=== PATIENT | female | born 1930 | race Caucasian/White ===

== ENCOUNTER 2019-09-27 17:33 | Inpatient (IN) | payer MEDICARE, BC ==
[~2019-09-27] VITALS: Ht 167.6 cm; Wt 67.5 kg
[~2019-09-27 17:33] MED LIST: AMLO5TAB10 PO; ASPI-482 PO; ATOR20TA PO; CARV6.2511 PO; LISI10TA2 PO; MECL25TA3 PO; METF1000 PO; METF500T PO; TRIM100T13 PO
[2019-09-27] MEDS: IV NORMAL SALINE 1000ML BAG 1,000 ML IV SCH (20:00)
[2019-09-27 20:15] VITALS: BP 144/62
[2019-09-27 20:28] LABS: BASO % 1 % (0-3); EOS # 0.2 x10^3/uL (0.0-0.7); EOS % 3 % (0-3); HEMOGLOBIN 9.3 g/dL (12.0-15.5); LYMPH % 12 % (24-48); MEAN CORPUSCULAR HEMOGLOBIN 32 pg (25-35); MEAN CORPUSCULAR HGB CONC 35 g/dL (31-37); MEAN CORPUSCULAR VOLUME 93 fL (79-100); MONO # 0.1 x10^3/uL (0.0-1.1); MONO % 2 % (0-9); NEUT # 7.2 x10^3/uL (1.8-7.7); NEUT % 84 % (31-73); RED CELL DISTRIBUTION WIDTH 15.1 % (11.5-14.5); WHITE BLOOD COUNT 8.6 x10^3/uL (4.0-11.0)
[2019-09-27 20:36] LABS: CALCIUM 8.8 mg/dL (8.5-10.1); GFR 52.4; POTASSIUM 4.1 mmol/L (3.5-5.1)
[2019-09-27 20:37] LABS: PROTHROMBIN TIME PATIENT 14.3 SEC (11.7-14.0)
[2019-09-27 20:43] LABS: ALBUMIN 3.4 g/dL (3.4-5.0); ALBUMIN/GLOBULIN RATIO 0.7 (1.0-1.7); TOTAL BILIRUBIN 1.1 mg/dL (0.2-1.0); TOTAL PROTEIN 8.1 g/dL (6.4-8.2)
[2019-09-27 20:44] LABS: D-DIMER 2.37 ug/mlFEU (0.00-0.50)
[2019-09-27 20:46] LABS: PLATELET COUNT 3 x10^3/uL (140-400)
[2019-09-27 20:49] LABS: PLT ESTIMATE DECREASED (ADEQUATE); POLYCHROMASIA SLIGHT
[2019-09-27 21:00] VITALS: BP 136/60
[2019-09-27] MEDS ORDERED: MECLIZINE HCL 12.5 MG TABLET. PO PRN (21:15)
[2019-09-27] MEDS ORDERED: NAPROXEN 500 MG TABLET PO PRN (21:15)
[2019-09-27 22:00] VITALS: BP 149/50
[2019-09-27] MEDS: CARVEDILOL 6.25 MG TABLET. PO SCH (22:02)
[2019-09-27] MEDS: ATORVASTATIN CALCIUM 20 MG TABLET PO SCH (22:02)
[2019-09-27 23:00] VITALS: BP 136/57
[2019-09-28] VITALS (19 sets, daily range): BP systolic 122–172; BP diastolic 44–81
[2019-09-28] MEDS: CARVEDILOL 6.25 MG TABLET. PO SCH ×2 (08:47→16:57)
[2019-09-28] MEDS: metFORMIN 500 MG TABLET PO SCH ×2 (08:48→16:57)
[2019-09-28 09:23] LABS: BASO % 0 % (0-3); EOS % 0 % (0-3); HEMATOCRIT 26.1 % (36.0-47.0); HEMOGLOBIN 8.9 g/dL (12.0-15.5); LYMPH % 18 % (24-48); MEAN CORPUSCULAR HEMOGLOBIN 32 pg (25-35); MEAN CORPUSCULAR HGB CONC 34 g/dL (31-37); MEAN CORPUSCULAR VOLUME 93 fL (79-100); MONO # 0.1 x10^3/uL (0.0-1.1); MONO % 3 % (0-9); NEUT # 4.5 x10^3/uL (1.8-7.7); NEUT % 79 % (31-73); RED CELL DISTRIBUTION WIDTH 15.1 % (11.5-14.5); WHITE BLOOD COUNT 5.7 x10^3/uL (4.0-11.0)
[2019-09-28 09:27] LABS: PLATELET COUNT 4 x10^3/uL (140-400)
[2019-09-28 09:33] LABS: ALBUMIN 3.3 g/dL (3.4-5.0); ALBUMIN/GLOBULIN RATIO 0.7 (1.0-1.7); CALCIUM 8.9 mg/dL (8.5-10.1); CREATININE 1.1 mg/dL (0.6-1.0); POTASSIUM 4.3 mmol/L (3.5-5.1); TOTAL BILIRUBIN 0.9 mg/dL (0.2-1.0); TOTAL PROTEIN 8.1 g/dL (6.4-8.2)
--- NOTE | 2019-09-28 10:16 | PN ---
DATE: 09/28/2019 SUBJECTIVE: The patient is resting, slightly propped up in bed, in no apparent respiratory distress. She continued to spit some blood and has also black stool. She was transferred yesterday after she was seen in the Emergency Room of [facility] with a platelet count of 23,000. I did discontinue her trimethoprim that she is getting for prophylaxis against urinary tract infection. She did receive 125 mg of Solu-Medrol. We did consult the software product specialist/oncologist to evaluate and treat. PHYSICAL EXAMINATION: GENERAL: When I saw her this morning, she looked well and was clearly in no apparent respiratory distress, pale, but no jaundice, cyanosis or thyromegaly. No jugular venous distention. No limb edema. VITAL SIGNS: Her heart rate was 88, blood pressure 165/76, temperature was 98, respiratory rate was 18 and oxygen saturation was 97% on 3 liters of oxygen. HEAD, EYES, EARS, NOSE AND THROAT: Showed normocephalic, atraumatic. NECK: Supple. HEART: Showed normal first and second heart sounds. No gallop or murmur. CHEST: Clear to auscultation. No crepitation or rhonchi. ABDOMEN: Distended, soft, nontender. NEUROLOGIC: She is awake, alert, responding appropriately. All cranial nerves intact. She moves extremities without difficulty. She ambulates without assistance or assistive devices. LABORATORY DATA: Her lab work this morning showed a white cell count 5700, hemoglobin was 8.9, hematocrit 26, MCV 93, and platelet count 4000 with a manual differential showed 79% polymorphs, 18% lymphocytes. Her reticulocyte count is only 2%. Her prothrombin time was 14.3, INR 1.1, aPTT was 32. Fibrinogen was 439. D-dimer was 2.37. Her chemistry this morning showed a serum sodium 142, potassium 4.3, chloride 107, bicarbonate 27, anion gap of 8, BUN 29, creatinine 1.1, estimated GFR was 47 mL per minute. Her glucose was 76, calcium was 8.9. Total bilirubin, AST, ALT, alkaline phosphatase were normal. Total protein was 8.1, albumin was 3.3. ASSESSMENT: This is an 88-year-old female patient who is coming with new onset of severe thrombocytopenia. Her platelet count today is only 4000. She apparently has been on trimethoprim on a daily basis as a prophylaxis for urinary tract infection that I have discontinued. She was given Solu-Medrol 125 mg IV yesterday and she was seen today by the software product specialist, started her on prednisone 60 mg daily. We will follow her obviously closely and transfuse her if she started bleeding. I will discontinue her naproxen. GUS YU MD DR: SOTO/aicha JOB#: [id number] / [id number]
--- NOTE | 2019-09-28 10:20 | CONS ---
DATE OF CONSULTATION: 09/28/2019 HEMATOLOGY/ONCOLOGY CONSULTATION REPORT REQUESTING PHYSICIAN: Alexus Cloud MD REASON FOR CONSULTATION: Severe thrombocytopenia. HISTORY OF PRESENT ILLNESS: The patient is an 88-year-old female who noted significant bruising in her forearms and her legs on 09/25/2019. She also noticed nosebleeds on and off which prompted her to go [place] [facility] [place] Her labs on 09/27/2019 revealed WBC of 8.6, hemoglobin 9.3 and a platelet count of 3000. Differential counts revealed 84% neutrophils and 12% lymphocytes. Creatinine was 1.0. Review of old records indicates that in 06/2018, her platelet count was 320,000 with hemoglobin of 10.8. In 04/2019, the platelet counts were 46,000-52,000 with hemoglobin of 11.2. She was referred to Dr. Christine Stephens in 04/2019 for thrombocytopenia. Followup platelet counts on 05/31/2019 revealed that it had normalized at 186,000 and no other interventions were recommended. She underwent workup with TSH and that was normal. 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 Copper level was normal. HIV negative. Hepatitis panel negative. Fibrinogen and coags negative. B12 326 with folic acid normal. Increased methylmalonic acid and she was taking B Complex. She denies hematemesis, melena or hematochezia. No hemoptysis or hematuria. PAST MEDICAL HISTORY: Osteoarthritis, COPD, dermatitis herpetiformis, diabetes mellitus, duodenal ulcer, GERD, diverticulitis, hyperlipidemia, hypertension, osteoporosis, pulmonary fibrosis, recurrent UTI, skin cancer and spinal stenosis. FAMILY HISTORY: Son had a stroke. Daughter has MS. SOCIAL HISTORY: She is single. She is a former smoker, quit at the age of 69 and she has [id number] smoking history. REVIEW OF SYSTEMS: A 12-point review of system was performed. Pertinent positives are mentioned in the history of present illness. Rest of the system review is negative. PHYSICAL EXAMINATION: GENERAL APPEARANCE: The patient is an 88-year-old female who is in no acute cardiorespiratory distress. VITAL SIGNS: Blood pressure 140/51 and temperature 98 degrees. HEENT: Atraumatic and normocephalic. EYES: No icterus. NECK: Supple. CHEST: Bilaterally symmetrical. No crepitations or rhonchi heard. HEART: S1, S2 normal. ABDOMEN: Soft and nontender. CENTRAL NERVOUS SYSTEM: No focal deficits. LYMPHATICS: No lymphadenopathy. SKIN: No rashes. PSYCHOLOGIC: Mood and affect are appropriate. LABORATORY DATA: WBC 8.6, hemoglobin 9.3 and platelet count 3000. Followup platelet count on 09/28/2019 is 4000. IMPRESSION AND PLAN: 1. Severe thrombocytopenia, clinically suggestive of Immune thrombocytopenic purpura. She did have an episode of thrombocytopenia in 04/2019, which resolved on its own. WBC count is normal with differential count that is unremarkable except for mildly increased neutrophils. No clinical evidence of leukemia. Peripheral smear reveals polychromasia and decreased platelet estimate. She received a dose of Solu-Medrol on 09/27/2019. I will start her on prednisone 60 mg daily from 09/28/2019 and monitor for response. There is no clinical evidence of lymphadenopathy or hepatosplenomegaly. There is no evidence of lymphoma clinically. I did recommend a bone marrow aspiration and biopsy and she would like to think about it. 2. Anemia, normochromic normocytic. I suspect that she has anemia due to chronic disease. Her prior workup was unremarkable. DAVID JENSEN MD DR: CHERELLE/aicha JOB#: [id number] / [id number] KIMBERLY
--- NOTE | 2019-09-28 10:38 | HP ---
ADMIT DATE: 09/28/2019 HISTORY OF PRESENT ILLNESS: The patient is an 88-year-old female patient, who presented to the Emergency Room of [facility] with gingival bleeding, hemoptysis, purpura of upper extremities and petechiae of lower extremities. She also had epistaxis. She also reported black stools. Symptoms started about 1 week ago. She discontinued her daily aspirin at that time and she is not on any additional anticoagulation therapy. No history of illness. Previous history of thrombocytopenia on newly-initiated medication. No history of cancer. Denied any dizziness, lightheadedness, chest pain, shortness of breath. She was evaluated in the Emergency Room and lab work showed that her platelet count of only 33,000. 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 She was given 125 mg of Solu-Medrol and was transferred to [facility] for further evaluation and to consult the plastic parts fabricator/oncologist. PAST MEDICAL HISTORY: Significant for type 2 diabetes, hypertension, hyperlipidemia. She also has probably bronchiectasis, senile macular degeneration, transient ischemic attack x 3, and generalized osteoarthritis. PAST SURGICAL HISTORY: Significant for bunionectomy, cancer skin resection from her scalp, bilateral cataract extraction as well as colonoscopy. She apparently has been following with Dr. Stephens, who recommended bone marrow biopsy; however, I do not have all the specifics. ALLERGIES: SHE IS ALLERGIC TO MACROLIDE ANTIBIOTICS, CIPROFLOXACIN, PLAVIX, FLUORESCEIN, HYDROCODONE, AND PENICILLIN. FAMILY HISTORY: She has 1 sister older and still alive. She had 2 sisters in their 90s because of congestive heart failure. Her mother at the age of 93 because of congestive heart failure. Her father and 2 brothers in their 70s because of cancer. SOCIAL HISTORY: She is , has 1 son and daughter. She smoked for almost 50 years, quit when she was 69 years old. She does not drink alcohol. She worked for the [employer]. MEDICATIONS: She is currently on following medications: She is on doxycycline hyclate 100 mg twice a day, trimethoprim 100 mg at bedtime, atorvastatin calcium 20 mg at bedtime, omega-3 fatty acid 1000 mg once a day, carvedilol 6.25 mg twice a day, aspirin 81 mg once a day, alprazolam 0.25 mg twice a day as needed, meclizine 25 mg 3 times a day as needed, and metformin 500 mg once a day. She is also on betamethasone dipropionate cream apply topically twice a day, vitamin B complex 1 tablet once a day, and multivitamin with mineral. She is also on PreserVision AREDS 1 tablet daily and lactobacillus acidophilus 100 mg p.o. daily for colon health. PHYSICAL EXAMINATION: GENERAL: On examining her in the Emergency Room, the patient was pale, but no jaundice, cyanosis, or thyromegaly. No jugular venous distention. No lower limb edema. VITAL SIGNS: Her heart rate was 82, blood pressure was 146/63, temperature was 98.2, respiratory rate was 18 and oxygen saturation was 93% on 3 liters of oxygen. HEAD, EYES, EARS, NOSE AND THROAT: Showed normocephalic, atraumatic. NECK: Supple. HEART: Showed normal first and second heart sound. No gallop, rub, or murmur. CHEST: Clear to auscultation. No crepitation or rhonchi. ABDOMEN: Distended, soft, nontender. NEUROLOGIC: She was awake, alert, responding appropriately. All cranial nerves intact. She moves her extremities without difficulty. SKIN: Ecchymosis and bleeding on her tongue and her petechiae on her palate. She has also multiple ecchymoses in both upper extremities and extensive petechiae in both lower extremities. LABORATORY DATA: Her lab work showed her white cell count was 9400, hemoglobin 9.4, hematocrit 28.5, MCV 95, and platelet count of 3000 with normal manual differential. Her chemistry showed a serum sodium 141, potassium 4, chloride 105, bicarbonate 26, anion gap of 10, BUN 24, creatinine 1, estimated GFR was 52 mL per minute. Her glucose 118. Calcium was 8.9. Total bilirubin, AST, ALT, alkaline phosphatase were normal. Total protein was 8.1 and albumin was 3.5. Her prothrombin time, INR, and aPTT were within normal limits. The patient was given a dose of Solu-Medrol 125 mg once IV and was transferred to [facility] with diagnosis of severe thrombocytopenia for further evaluation and to consult the plastic parts fabricator/oncologist. GUS YU MD DR: SOTO/aicha JOB#: [id number] / [id number]
[2019-09-28] MEDS: predniSONE 20 MG TABLET PO SCH (10:46)
[2019-09-28] MEDS: IV NORMAL SALINE 1000ML BAG 1,000 ML IV SCH (16:00)
[2019-09-28] MEDS: ATORVASTATIN CALCIUM 20 MG TABLET PO SCH (20:15)
[2019-09-29] VITALS (7 sets, daily range): BP systolic 112–162; BP diastolic 50–86
[2019-09-29 06:32] LABS: CALCIUM 8.6 mg/dL (8.5-10.1); CREATININE 0.9 mg/dL (0.6-1.0); GFR 59.2
[2019-09-29 07:39] LABS: HEMOGLOBIN 7.4 g/dL (12.0-15.5); RED BLOOD COUNT 2.34 x10^6/uL (3.50-5.40); RED CELL DISTRIBUTION WIDTH 15.1 % (11.5-14.5); WHITE BLOOD COUNT 11.1 x10^3/uL (4.0-11.0)
[2019-09-29] MEDS: metFORMIN 500 MG TABLET PO SCH ×2 (08:00→17:00)
[2019-09-29] MEDS: CARVEDILOL 6.25 MG TABLET. PO SCH ×2 (08:20→17:00)
[2019-09-29] MEDS: predniSONE 20 MG TABLET PO SCH (08:20)
--- NOTE | 2019-09-29 13:04 | PN ---
DATE: 09/29/2019 SUBJECTIVE: The patient is resting, slightly propped up in bed, in no apparent respiratory distress. She is awake, alert. On questioning her, she denied any complaints except recurrent bouts of dry cough. Denied any chest pain or shortness of breath. She was started yesterday on prednisone 60 mg once a day by the oncologist. PHYSICAL EXAMINATION: GENERAL: When I examined her, she was pale. No jaundice, cyanosis or thyromegaly. No jugular venous distention. No limb edema. VITAL SIGNS: Her heart rate was 85, blood pressure was 112/67, temperature was 97.9, respiratory rate was 18 and oxygen saturation was 95% on 2 liters of oxygen. HEAD, EYES, EARS, NOSE AND THROAT: Showed normocephalic, atraumatic. NECK: Supple. HEART: Showed normal first and second heart sounds. No gallop or murmur. CHEST: Clear to auscultation. No crepitation or rhonchi. ABDOMEN: Distended, soft, nontender. NEUROLOGIC: She is awake, alert, responding appropriately. All cranial nerves intact. She moves extremities without difficulty. She ambulates with a walker. LABORATORY DATA: Her lab work this morning showed a white cell count of 11,100, hemoglobin 7.4, hematocrit 22, MCV 94 and platelet count of 3000. Serum sodium 144, potassium 4, chloride 111, bicarbonate 25, anion gap of 8, BUN 36, creatinine 0.9, estimated GFR was 59 mL per minute, her glucose 101, calcium was 8.6. 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 Apparently, the patient was scheduled for bone marrow biopsy tomorrow. GUS YU MD DR: SOTO/aicha JOB#: [id number] / [id number]
--- NOTE | 2019-09-29 15:21 | PDOC ---
PROGRESS NOTES Subjective Subjective HPI - f/u of Severe thrombocytopenia ROS - no bleed Objective Objective Vital Signs Date Time Temp Pulse Resp B/P (MAP) Pulse Ox O2 Delivery O2 Flow Rate FiO2 09/29/19 12:00 98.3 77 18 147/50 (82) 96 Nasal Cannula 2.0 98.3 Intake and Output 09/29/19 07:00 Intake Total 920 ml Balance 920 ml Intake Oral 920 ml # Voids 6 # Bowel Movements 2 Physical Exam Heart: Normal S1, Normal S2 General: Alert, Oriented X3 Lungs: Clear to auscultation Neuro: Normal speech Psych/Mental Status: Mental status NL Skin: Other (ecchymoses and petechiae) Assessment Assessment IMPRESSION AND PLAN: 1. Severe thrombocytopenia, clinically suggestive of Immune thrombocytopenic purpura. She did have an episode of thrombocytopenia in 04/2019, which resolved on its own. WBC count is normal with differential count that is unremarkable except for mildly increased neutrophils. No clinical evidence of leukemia. Peripheral smear reveals polychromasia and decreased platelet estimate. She received a dose of Solu-Medrol on 09/27/2019. I started her on prednisone 60 mg daily from 09/28/2019 and monitor for response. There is no clinical evidence of lymphadenopathy or hepatosplenomegaly. There is no evidence of lymphoma clinically. I did recommend a bone marrow aspiration and biopsy and she agrees. 2. Anemia, normochromic normocytic. I suspect that she has anemia due to chronic disease. Her prior workup was unremarkable. Comment Review of Relevant I have reviewed the following items jose c (where applicable) has been applied. Labs Laboratory Tests Test 09/27/19 20:10 09/28/19 09:00 09/28/19 16:57 09/29/19 06:05 White Blood Count 8.6 x10^3/uL (4.0-11.0) 5.7 x10^3/uL (4.0-11.0) 11.1 x10^3/uL (4.0-11.0) Red Blood Count 2.90 x10^6/uL (3.50-5.40) 2.81 x10^6/uL (3.50-5.70) 2.34 x10^6/uL (3.50-5.40) Hemoglobin 9.3 g/dL (12.0-15.5) 8.9 g/dL (12.0-15.5) 7.4 g/dL (12.0-15.5) Hematocrit 27.0 % (36.0-47.0) 26.1 % (36.0-47.0) 22.0 % (36.0-47.0) Mean Corpuscular Volume 93 fL (79-100) 93 fL (79-100) 94 fL (79-100) Mean Corpuscular Hemoglobin 32 pg (25-35) 32 pg (25-35) 32 pg (25-35) Mean Corpuscular Hemoglobin Concent 35 g/dL (31-37) 34 g/dL (31-37) 34 g/dL (31-37) Red Cell Distribution Width 15.1 % (11.5-14.5) 15.1 % (11.5-14.5) 15.1 % (11.5-14.5) Platelet Count 3 x10^3/uL (140-400) 4 x10^3/uL (140-400) 3 x10^3/uL (140-400) Neutrophils (%) (Auto) 84 % (31-73) 79 % (31-73) Lymphocytes (%) (Auto) 12 % (24-48) 18 % (24-48) Monocytes (%) (Auto) 2 % (0-9) 3 % (0-9) Eosinophils (%) (Auto) 3 % (0-3) 0 % (0-3) Basophils (%) (Auto) 1 % (0-3) 0 % (0-3) Neutrophils # (Auto) 7.2 x10^3/uL (1.8-7.7) 4.5 x10^3/uL (1.8-7.7) Lymphocytes # (Auto) 1.0 x10^3/uL (1.0-4.8) 1.0 x10^3/uL (1.0-4.8) Monocytes # (Auto) 0.1 x10^3/uL (0.0-1.1) 0.1 x10^3/uL (0.0-1.1) Eosinophils # (Auto) 0.2 x10^3/uL (0.0-0.7) 0.0 x10^3/uL (0.0-0.7) Basophils # (Auto) 0.0 x10^3/uL (0.0-0.2) 0.0 x10^3/uL (0.0-0.2) Platelet Estimate Decreased (ADEQUATE) Polychromasia Slight Prothrombin Time 14.3 SEC (11.7-14.0) Prothromb Time International Ratio 1.1 (0.8-1.1) Activated Partial Thromboplast Time 32 SEC (24-38) Fibrinogen 439 mg/dL (200-440) D-Dimer (Lyly) 2.37 ug/mlFEU (0.00-0.50) Sodium Level 141 mmol/L (136-145) 142 mmol/L (136-145) 144 mmol/L (136-145) Potassium Level 4.1 mmol/L (3.5-5.1) 4.3 mmol/L (3.5-5.1) 4.0 mmol/L (3.5-5.1) Chloride Level 106 mmol/L (98-107) 107 mmol/L (98-107) 111 mmol/L (98-107) Carbon Dioxide Level 25 mmol/L (21-32) 27 mmol/L (21-32) 25 mmol/L (21-32) Anion Gap 10 (6-14) 8 (6-14) 8 (6-14) Blood Urea Nitrogen 26 mg/dL (7-20) 29 mg/dL (7-20) 36 mg/dL (7-20) Creatinine 1.0 mg/dL (0.6-1.0) 1.1 mg/dL (0.6-1.0) 0.9 mg/dL (0.6-1.0) Estimated GFR (Cockcroft-Gault) 52.4 47.0 59.2 BUN/Creatinine Ratio 26 (6-20) 26 (6-20) Glucose Level 173 mg/dL (70-99) 176 mg/dL (70-99) 101 mg/dL (70-99) Calcium Level 8.8 mg/dL (8.5-10.1) 8.9 mg/dL (8.5-10.1) 8.6 mg/dL (8.5-10.1) Total Bilirubin 1.1 mg/dL (0.2-1.0) 0.9 mg/dL (0.2-1.0) Aspartate Amino Transf (AST/SGOT) 17 U/L (15-37) 15 U/L (15-37) Alanine Aminotransferase (ALT/SGPT) 16 U/L (14-59) 11 U/L (14-59) Alkaline Phosphatase 57 U/L (46-116) 55 U/L (46-116) Lactate Dehydrogenase 227 U/L (81-234) Total Protein 8.1 g/dL (6.4-8.2) 8.1 g/dL (6.4-8.2) Albumin 3.4 g/dL (3.4-5.0) 3.3 g/dL (3.4-5.0) Albumin/Globulin Ratio 0.7 (1.0-1.7) 0.7 (1.0-1.7) Absolute Reticulocyte Count 0.055 x10^6/uL (0.020-0.120) Percent Reticulocyte Count 2.0 % (0.5-2.3) Immature Reticulocyte Fraction 0.56 (0.20-0.60) Iron Level 79 ug/dL (50-170) Total Iron Binding Capacity 228 ug/dL (250-450) Iron Saturation 35 % (15-34) Ferritin 158 ng/mL (8-252) Glucose (Fingerstick) 133 mg/dL (70-99) Test 09/29/19 07:41 09/29/19 10:53 Glucose (Fingerstick) 84 mg/dL (70-99) 124 mg/dL (70-99) Laboratory Tests Test 09/28/19 16:57 09/29/19 06:05 09/29/19 07:41 09/29/19 10:53 Glucose (Fingerstick) 133 mg/dL (70-99) 84 mg/dL (70-99) 124 mg/dL (70-99) White Blood Count 11.1 x10^3/uL (4.0-11.0) Red Blood Count 2.34 x10^6/uL (3.50-5.40) Hemoglobin 7.4 g/dL (12.0-15.5) Hematocrit 22.0 % (36.0-47.0) Mean Corpuscular Volume 94 fL (79-100) Mean Corpuscular Hemoglobin 32 pg (25-35) Mean Corpuscular Hemoglobin Concent 34 g/dL (31-37) Red Cell Distribution Width 15.1 % (11.5-14.5) Platelet Count 3 x10^3/uL (140-400) Sodium Level 144 mmol/L (136-145) Potassium Level 4.0 mmol/L (3.5-5.1) Chloride Level 111 mmol/L (98-107) Carbon Dioxide Level 25 mmol/L (21-32) Anion Gap 8 (6-14) Blood Urea Nitrogen 36 mg/dL (7-20) Creatinine 0.9 mg/dL (0.6-1.0) Estimated GFR (Cockcroft-Gault) 59.2 Glucose Level 101 mg/dL (70-99) Calcium Level 8.6 mg/dL (8.5-10.1) Medications Current Medications Sodium Chloride 1,000 ml @ 50 mls/hr Q20H IV Last administered on 09/28/19at 16:00; Start 09/27/19 at 20:00; Stop 09/29/19 at 11:33; Status DC Carvedilol (Coreg) 6.25 mg BIDWMEALS PO Last administered on 09/29/19at 08:20; Start 09/27/19 at 21:30 Metformin HCl (Glucophage) 500 mg BIDWMEALS PO Last administered on 09/28/19at 16:57; Start 09/28/19 at 08:00 Atorvastatin Calcium (Lipitor) 20 mg QHS PO Last administered on 09/28/19at 20:15; Start 09/27/19 at 21:30 Naproxen (Naprosyn) 500 mg PRN Q6HRS PRN PO pain; Start 09/27/19 at 21:15; Stop 09/28/19 at 09:59; Status DC Meclizine HCl (Antivert) 25 mg PRN Q6HRS PRN PO DIZZINESS; Start 09/27/19 at 21:15 Alprazolam (Xanax) 0.25 mg PRN Q8HRS PRN PO ANXIETY / AGITATION; Start 09/27/19 at 22:30 Prednisone (Prednisone) 60 mg DAILY PO Last administered on 09/29/19at 08:20; Start 09/28/19 at 10:00 Active Scripts Active Reported Lipitor (Atorvastatin Calcium) 20 Mg Tablet 1 Tab PO DAILY Meclizine Hcl 25 Mg Tablet 1 Tab PO TID Glucophage (Metformin Hcl) 500 Mg Tablet 1 Tab PO BID Carvedilol (Carvedilol) 6.25 Mg Tablet 1 Tab PO BID Lisinopril 10 Mg Tablet 1 Tab PO DAILY Vitals/I & O Vital Sign - Last 24 Hours 09/28/19 09/28/19 09/28/19 09/28/19 16:30 16:34 16:57 19:06 Temp 98.2 98.4 98.2 98.4 Pulse 98 98 95 Resp 18 18 B/P (MAP) 172/65 (100) 172/65 151/81 (104) Pulse Ox 94 97 O2 Delivery Nasal Cannula Nasal Cannula Nasal Cannula O2 Flow Rate 3.0 3.0 3.0 09/28/19 09/29/19 09/29/19 09/29/19 23:29 03:24 08:00 08:20 Temp 97.6 97.7 97.9 97.6 97.7 97.9 Pulse 79 72 85 72 Resp 18 18 18 B/P (MAP) 147/79 (101) 146/64 (91) 112/67 (82) 146/64 Pulse Ox 97 98 95 O2 Delivery Nasal Cannula Nasal Cannula Nasal Cannula O2 Flow Rate 3.0 3.0 2.0 09/29/19 09/29/19 09:00 12:00 Temp 98.3 98.3 Pulse 77 Resp 18 B/P (MAP) 147/50 (82) Pulse Ox 96 O2 Delivery Nasal Cannula Nasal Cannula O2 Flow Rate 2.0 2.0 Intake and Output 09/28/19 09/28/19 09/29/19 15:00 23:00 07:00 Intake Total 500 ml 300 ml 120 ml Balance 500 ml 300 ml 120 ml DAVID JENSEN MD Sep 29, 2019 15:21
--- NOTE | 2019-09-29 15:50 | RAD ---
CHEST PA LATERAL INDICATION: Worsening dyspnea. COMPARISON STUDY: Radiograph 05/18/2019. CT 09/09/2016. FINDINGS: Lungs: Normal lung volume. Patchy bilateral opacities and prominent interstitial markings, similar to the prior exams. Pleura: No pleural effusion or pneumothorax. Heart and Mediastinum: The cardiomediastinal silhouette is normal. The great vessels of the thorax are normal. IMPRESSION: Patchy bilateral opacities and prominent interstitial markings are similar to prior exams. This may represent interstitial edema and/or chronic interstitial lung disease. Superimposed infection would be difficult to exclude. Electronically signed by: Reginald Chan MD (09/29/2019 3:47 PM) [facility]
[2019-09-29] MEDS: ALPRAZolam 0.25 MG TABLET PO PRN ×2 (17:00→19:13)
[2019-09-29] MEDS: ATORVASTATIN CALCIUM 20 MG TABLET PO SCH (20:07)
[2019-09-30] VITALS (19 sets, daily range): BP systolic 127–181; BP diastolic 39–88
[2019-09-30 04:16] LABS: RED BLOOD COUNT 2.14 x10^6/uL (3.50-5.40); RED CELL DISTRIBUTION WIDTH 15.1 % (11.5-14.5); WHITE BLOOD COUNT 10.3 x10^3/uL (4.0-11.0)
[2019-09-30 04:30] LABS: HEMATOCRIT 20.4 % (36.0-47.0); HEMOGLOBIN 6.9 g/dL (12.0-15.5)
[2019-09-30] MEDS: CARVEDILOL 6.25 MG TABLET. PO SCH ×2 (08:00→17:30)
--- NOTE | 2019-09-30 08:49 | PDOC ---
SUBJECTIVE Subjective S: skin, tongue, nose bleeding O: Gen: NAD, resting in bed Psych: pleasant mood and affect Skin: excess UE bruising, petechiae BLE, tongue w/ recent bleeding too Labs: plt 4,000, Hb 6.9 INR 1.1, PTT nl, ferr and Fe sat adequate A/P: Ms Arvizu is an 88 yo female w/ h/o dermatitis herpetiformis, and anemia and TCP, trimethroprim and naproxen stopped on admit w/ plt of 3,000 not improved w/ prednisone 60 mg daily TCP: BMBx today, trimethoprim and naproxen stopped, on prednisone 60 mg, will add IVIG today and await BMBx results anemia: suspect from bleeding from TCP, transfuse to keep Hb >7 hypoxia at home: on O2 prn eosinophilia in the past: 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 OBJECTIVE Vital Signs Vital Signs Date Time Temp Pulse Resp B/P (MAP) Pulse Ox O2 Delivery O2 Flow Rate FiO2 09/30/19 08:25 98.8 76 18 167/63 98.8 09/30/19 08:10 98.0 78 18 147/88 98.0 09/30/19 07:55 97.8 77 16 136/49 (78) 98 Nasal Cannula 2.0 97.8 09/30/19 03:35 97.5 70 18 139/47 (77) 99 Nasal Cannula 2.0 97.5 09/29/19 23:26 97.6 66 18 133/55 (81) 97 Nasal Cannula 2.0 97.6 09/29/19 21:00 Nasal Cannula 2.0 09/29/19 19:19 97.6 77 18 143/66 (91) 98 Nasal Cannula 2.0 97.6 09/29/19 17:00 88 162/63 09/29/19 16:00 96.2 88 16 162/63 (96) 96 Nasal Cannula 2.0 96.2 09/29/19 12:00 98.3 77 18 147/50 (82) 96 Nasal Cannula 2.0 98.3 09/29/19 09:00 Nasal Cannula 2.0 I & O Intake and Output 09/30/19 07:00 Intake Total 460 ml Balance 460 ml Intake Oral 460 ml # Voids 4 COMMENT Lab Laboratory Tests Test 09/29/19 10:53 09/29/19 16:37 09/29/19 21:00 09/30/19 03:05 Glucose (Fingerstick) 124 mg/dL (70-99) 169 mg/dL (70-99) 123 mg/dL (70-99) White Blood Count 10.3 x10^3/uL (4.0-11.0) Red Blood Count 2.14 x10^6/uL (3.50-5.40) Hemoglobin 6.9 g/dL (12.0-15.5) Hematocrit 20.4 % (36.0-47.0) Mean Corpuscular Volume 95 fL (79-100) Mean Corpuscular Hemoglobin 32 pg (25-35) Mean Corpuscular Hemoglobin Concent 34 g/dL (31-37) Red Cell Distribution Width 15.1 % (11.5-14.5) Platelet Count 4 x10^3/uL (140-400) Test 09/30/19 07:22 Glucose (Fingerstick) 82 mg/dL (70-99) WILLY AMAYA MD Sep 30, 2019 08:49
[2019-09-30 09:42] LABS: BASO % 0 % (0-3); EOS % 0 % (0-3); LYMPH # 2.4 x10^3/uL (1.0-4.8); LYMPH % 23 % (24-48); MEAN CORPUSCULAR HEMOGLOBIN 32 pg (25-35); MEAN CORPUSCULAR HGB CONC 34 g/dL (31-37); MONO # 0.7 x10^3/uL (0.0-1.1); MONO % 7 % (0-9); NEUT % 69 % (31-73)
[2019-09-30 09:43] LABS: RED BLOOD COUNT 2.14 x10^6/uL (3.50-5.40); WHITE BLOOD COUNT 10.3 x10^3/uL (4.0-11.0)
[2019-09-30 09:44] LABS: MEAN CORPUSCULAR VOLUME 95 fL (79-100); RED CELL DISTRIBUTION WIDTH 15.1 % (11.5-14.5)
[2019-09-30 09:45] LABS: HEMATOCRIT 20.4 % (36.0-47.0); HEMOGLOBIN 6.9 g/dL (12.0-15.5); PLATELET COUNT 4 x10^3/uL (140-400)
[2019-09-30 10:44] LABS: PLT ESTIMATE DECREASED (ADEQUATE)
[2019-09-30 10:46] LABS: ANISOCYTOSIS SLIGHT; POLYCHROMASIA OCCASIONAL
--- NOTE | 2019-09-30 10:46 | PN ---
DATE: 09/30/2019 SUBJECTIVE: The patient is resting, slightly propped up in bed, in no apparent distress. Denied any complaint. Unfortunately, she dropped her hemoglobin and hematocrit down to 6.9 and 20.4, for which she ordered 1 unit of packed RBCs. Her platelet count continued to be 4,000 and she was seen by the oncologist. The plan is for her to get platelet transfusion as well as IVIG and she is scheduled for bone marrow biopsy. OBJECTIVE: GENERAL: When I examined her today, she looked pale. No jaundice, cyanosis or thyromegaly. No jugular venous distension. No lower limb edema. VITAL SIGNS: Her heart rate was 78, blood pressure was 147/88, temperature was 98, respiratory rate was 18 and oxygen saturation was 98% on 2 liters of oxygen. HEAD, EYES, EARS, NOSE AND THROAT: Showed normocephalic, atraumatic. NECK: Supple. CARDIAC: Normal first and second heart sounds. No gallop, rub or murmur. CHEST: Clear to auscultation. No crepitation or rhonchi. ABDOMEN: Distended, soft and nontender. No guarding or rigidity. No organomegaly. All hernial orifice intact. Bowel sounds normal. NEUROLOGIC: She was awake and alert, responding appropriately. All cranial nerves intact. She moves extremities without difficulty. LABORATORY DATA: Her lab work [place] [address], hemoglobin 6.9, hematocrit 20.4, MCV 95 and platelet count 4,000. Her chemistry showed her serum sodium 144, potassium 4, chloride 111, bicarbonate 25, anion gap of 8, BUN 36 and creatinine 0.9. Estimated GFR was 59 mL per minute. Her glucose was 101, calcium was 8.6 and prothrombin time, INR, aPTT and D-dimer ____. 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 Other medical problems include type 2 diabetes, hypertension, hyperlipidemia, bronchiectasis, senile macular degeneration and transient ischemic attack x 3 and generalized osteoarthritis. She also dropped her hemoglobin and hematocrit down to 6.9 and 20. PLAN: To transfuse 1 unit of packed RBCs, transfuse platelets, started her on IVIG and proceed with the scheduled bone marrow biopsy. GUS YU MD DR: SOTO/aicha JOB#: [id number] / [id number]
--- NOTE | 2019-09-30 10:53 | NUR ---
SW following pt for dc planning. Chart reviewed and discussed with RN. Pt lives at home alone and oncology following. Per RN pt has been using a walker here but does not use one at home. Pt might benefit from PT/OT if appropriate. SW will be available as needed.
[2019-09-30] MEDS ORDERED: LIDOCAINE 2% VISCOUS 15 ML SOLUTION. SWSW PRN (11:15)
[2019-09-30] MEDS ORDERED: fentaNYL PF VIAL 100 MCG/2 ML VIAL ONE (12:04)
[2019-09-30] MEDS ORDERED: MIDAZOLAM HCL/PF 2 MG/2 ML VIAL. ONE (12:04)
[2019-09-30] MEDS ORDERED: MIDAZOLAM HCL/PF 2 MG/2 ML VIAL. IV ONE (12:15)
[2019-09-30] MEDS ORDERED: LIDOCAINE WITH 8.4% SOD BICARB 3 ML DISP.SYRIN. ONE (12:15)
[2019-09-30] MEDS ORDERED: LIDOCAINE WITH 8.4% SOD BICARB 3 ML DISP.SYRIN. IJ ONE (12:15)
[2019-09-30] MEDS ORDERED: fentaNYL PF VIAL 100 MCG/2 ML VIAL IV ONE (12:15)
--- NOTE | 2019-09-30 13:59 | RAD ---
CT-guided bone marrow biopsy. 09/30/2019 11:56 AM Indication: thrombocytopenia Discussion: The risks and benefits of the procedure, including but not limited to, bleeding and infection were discussed patient. Informed consent was obtained. The patient was brought to the CT scanner and placed in the prone position. A timeout procedure was performed. [employer] CT imaging of the pelvis demonstrated left ilium amenable to bone marrow biopsy. The overlying soft tissues were prepped and draped using maximum sterile barrier technique. 1% lidocaine without epinephrine was administered for local anesthesia. Under intermittent CT guidance, an OncControl needle was advanced into the bone marrow of the left iliac crest. 2 Aspirates and 1 core biopsy samples were obtained. Samples were delivered to pathology was present at the time of procedure. The needle was removed and manual pressure held to achieve hemostasis. No immediate complications were identified. The procedure was performed under conscious sedation including continuous cardiopulmonary monitoring via dedicated sedation nurse. Sedation time: 20 minutes Impression: Successful CT-guided bone marrow biopsy of the left iliac crest . PQRS Compliance Statement: One or more of the following individualized dose reduction techniques were utilized for this examination: 1. Automated exposure control 2. Adjustment of the mA and/or kV according to patient size 3. Use of iterative reconstruction technique
[2019-09-30] MEDS: predniSONE 20 MG TABLET PO SCH (14:46)
[2019-09-30] MEDS: metFORMIN 500 MG TABLET PO SCH ×3 (14:46→17:30)
[2019-09-30 17:21] LABS: BASO % 0 % (0-3); EOS # 0.1 x10^3/uL (0.0-0.7); EOS % 1 % (0-3); HEMATOCRIT 23.8 % (36.0-47.0); HEMOGLOBIN 8.1 g/dL (12.0-15.5); LYMPH # 1.9 x10^3/uL (1.0-4.8); LYMPH % 19 % (24-48); MEAN CORPUSCULAR HEMOGLOBIN 31 pg (25-35); MEAN CORPUSCULAR HGB CONC 34 g/dL (31-37); MEAN CORPUSCULAR VOLUME 91 fL (79-100); MONO # 0.6 x10^3/uL (0.0-1.1); MONO % 6 % (0-9); NEUT # 7.6 x10^3/uL (1.8-7.7); NEUT % 74 % (31-73); PLATELET COUNT 27 x10^3/uL (140-400); RED BLOOD COUNT 2.61 x10^6/uL (3.50-5.40); RED CELL DISTRIBUTION WIDTH 16.9 % (11.5-14.5); WHITE BLOOD COUNT 10.3 x10^3/uL (4.0-11.0)
[2019-09-30] MEDS: ATORVASTATIN CALCIUM 20 MG TABLET PO SCH (21:10)
[2019-10-01 03:10] VITALS: BP 155/47
[2019-10-01 05:11] LABS: HEMATOCRIT 23.7 % (36.0-47.0); HEMOGLOBIN 8.2 g/dL (12.0-15.5); RED BLOOD COUNT 2.62 x10^6/uL (3.50-5.40); RED CELL DISTRIBUTION WIDTH 17.4 % (11.5-14.5); WHITE BLOOD COUNT 8.3 x10^3/uL (4.0-11.0)
[2019-10-01 06:15] LABS: CALCIUM 8.6 mg/dL (8.5-10.1); GFR 52.4; POTASSIUM 3.8 mmol/L (3.5-5.1)
[2019-10-01 07:00] VITALS: BP 145/60
[2019-10-01] MEDS: metFORMIN 500 MG TABLET PO SCH ×2 (08:00→17:00)
[2019-10-01] MEDS: CARVEDILOL 6.25 MG TABLET. PO SCH ×2 (08:36→17:23)
--- NOTE | 2019-10-01 09:43 | PDOC ---
SUBJECTIVE Subjective S: bruises evolving, did have some dark stool O: Gen: NAD, resting in bed Psych: pleasant mood and affect Skin: UE bruising, petechiae BLE Labs: plt 4,000, Hb 6.9, improved w/ plts 27 and sustained post transfusion, Hb up to 8.2 post 1 unit INR 1.1, PTT nl, ferr and Fe sat adequate, B12 and LDH nl, retic nl, fibrinogen nl A/P: Ms Arvizu is an 88 yo female w/ h/o dermatitis herpetiformis, and anemia and TCP, trimethroprim and naproxen stopped on admit w/ plt of 3,000 not improved w/ prednisone 60 mg daily, w/ good response to plt transfusion TCP: BMBx pending, suspect drug induced, trimethoprim and naproxen stopped, will dc prednisone, IVIG not given due to shortage, great response and sustained to transfusion anemia: suspect from bleeding from TCP, transfuse to keep Hb >7, good response to 1 unit blood hypoxia at home: on O2 prn 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 OBJECTIVE Vital Signs Vital Signs Date Time Temp Pulse Resp B/P (MAP) Pulse Ox O2 Delivery O2 Flow Rate FiO2 10/01/19 08:36 71 145/60 10/01/19 07:00 98.0 71 17 145/60 (88) 96 Nasal Cannula 2.0 98.0 10/01/19 03:10 98.0 66 17 155/47 (83) 96 Nasal Cannula 2.0 98.0 09/30/19 23:10 97.6 69 18 140/53 (82) 96 Nasal Cannula 2.0 97.6 09/30/19 20:00 Nasal Cannula 2.0 09/30/19 19:10 98.0 82 18 151/54 (86) 93 Nasal Cannula 2.0 98.0 09/30/19 17:30 77 153/45 09/30/19 17:00 97.7 77 18 153/45 97.7 09/30/19 16:09 98.2 74 16 134/47 (76) 94 98.2 09/30/19 16:00 98.2 74 16 134/47 98.2 09/30/19 15:49 97.4 85 16 136/39 (71) 94 Nasal Cannula 2.0 97.4 09/30/19 15:40 98.0 75 18 135/51 98.0 09/30/19 15:25 97.9 68 20 127/49 97.9 09/30/19 13:15 Nasal Cannula 2.0 09/30/19 12:37 75 16 99 Nasal Cannula 2.0 09/30/19 12:36 15 99 Nasal Cannula 2.0 09/30/19 12:34 75 14 99 Nasal Cannula 2.0 09/30/19 12:29 76 22 100 Nasal Cannula 2.0 09/30/19 11:30 97.9 79 18 160/61 97.9 09/30/19 11:14 97.9 70 16 148/54 (85) 98 Nasal Cannula 2.0 97.9 09/30/19 10:25 97.9 70 16 148/54 97.9 I & O Intake and Output 10/01/19 07:00 Intake Total 1805 ml Balance 1805 ml Intake Oral 650 ml Blood Product IV Normal Saline Flush 1155 ml # Voids 5 COMMENT Lab Laboratory Tests Test 09/30/19 10:53 09/30/19 16:37 09/30/19 16:47 09/30/19 21:25 Glucose (Fingerstick) 80 mg/dL (70-99) 108 mg/dL (70-99) 269 mg/dL (70-99) White Blood Count 10.3 x10^3/uL (4.0-11.0) Red Blood Count 2.61 x10^6/uL (3.50-5.40) Hemoglobin 8.1 g/dL (12.0-15.5) Hematocrit 23.8 % (36.0-47.0) Mean Corpuscular Volume 91 fL (79-100) Mean Corpuscular Hemoglobin 31 pg (25-35) Mean Corpuscular Hemoglobin Concent 34 g/dL (31-37) Red Cell Distribution Width 16.9 % (11.5-14.5) Platelet Count 27 x10^3/uL (140-400) Neutrophils (%) (Auto) 74 % (31-73) Lymphocytes (%) (Auto) 19 % (24-48) Monocytes (%) (Auto) 6 % (0-9) Eosinophils (%) (Auto) 1 % (0-3) Basophils (%) (Auto) 0 % (0-3) Neutrophils # (Auto) 7.6 x10^3/uL (1.8-7.7) Lymphocytes # (Auto) 1.9 x10^3/uL (1.0-4.8) Monocytes # (Auto) 0.6 x10^3/uL (0.0-1.1) Eosinophils # (Auto) 0.1 x10^3/uL (0.0-0.7) Basophils # (Auto) 0.0 x10^3/uL (0.0-0.2) Test 10/01/19 03:15 10/01/19 07:38 White Blood Count 8.3 x10^3/uL (4.0-11.0) Red Blood Count 2.62 x10^6/uL (3.50-5.40) Hemoglobin 8.2 g/dL (12.0-15.5) Hematocrit 23.7 % (36.0-47.0) Mean Corpuscular Volume 91 fL (79-100) Mean Corpuscular Hemoglobin 31 pg (25-35) Mean Corpuscular Hemoglobin Concent 35 g/dL (31-37) Red Cell Distribution Width 17.4 % (11.5-14.5) Platelet Count 27 x10^3/uL (140-400) Sodium Level 145 mmol/L (136-145) Potassium Level 3.8 mmol/L (3.5-5.1) Chloride Level 110 mmol/L (98-107) Carbon Dioxide Level 25 mmol/L (21-32) Anion Gap 10 (6-14) Blood Urea Nitrogen 30 mg/dL (7-20) Creatinine 1.0 mg/dL (0.6-1.0) Estimated GFR (Cockcroft-Gault) 52.4 Glucose Level 163 mg/dL (70-99) Calcium Level 8.6 mg/dL (8.5-10.1) Glucose (Fingerstick) 111 mg/dL (70-99) WILLY AMAYA MD Oct 01, 2019 09:43
[2019-10-01 11:30] VITALS: BP 120/55
--- NOTE | 2019-10-01 13:06 | PN ---
DATE: 10/01/2019 SUBJECTIVE: The patient is resting, slightly propped up in bed, no apparent distress. She has had her bone marrow biopsy done yesterday. She did receive 1 unit of packed RBCs and she did also platelet transfusion. On questioning here today, she did complain of pain in her left side. I did actually chest x-ray, PA and lateral view and I could not really see any abnormality there. PHYSICAL EXAMINATION: GENERAL: When I examined her, she looked pale, no jaundice. No cyanosis or thyromegaly. No jugular venous distention. No lower limb edema. VITAL SIGNS: Her heart rate was 71, blood pressure was 145/60, temperature was 98, respiratory rate was 17 and oxygen saturation was 96% on 3 liters of oxygen. The rest of examination is stable. She continued to have multiple bruises, particularly in both upper limbs and petechiae in both lower extremities. LABORATORY DATA: Her lab work this morning showed her white cell count to be 8300, hemoglobin 8.2, hematocrit 23, MCV was 91, and platelet count 27,000. Her chemistry showed a serum sodium of 145, potassium 3.8, chloride 110, bicarbonate 25, anion gap of 10, BUN 30, creatinine 1, estimated GFR was 52 mL per minute. Her glucose 163 and calcium was 8.6. Her vitamin B12 was 618 pg/mL. Serum ferritin was 158. ASSESSMENT: Thrombocytopenia, likely idiopathic thrombocytopenic purpura versus drug-induced due to trimethoprim toxicity. The patient has had bone marrow biopsy and received 1 unit of packed RBCs and platelet transfusion. Her platelets are up to 27 and remained stable since yesterday. OTHER MEDICAL PROBLEMS: Include: A. Type 2 diabetes mellitus. B. Hypertension. C. Hyperlipidemia. D. Bronchiectasis. E. Senile macular degeneration. F. Transient ischemic attack x 3. G. Generalized osteoarthritis. H. Blood loss anemia with hemoglobin that dropped down to 6.9 and 20 for which she received 1 unit of packed RBCs. PLAN: Plan is to repeat her lab work tomorrow and if remains stable we will discuss the plan of management with Dr. Stephens and she remains stable, she can be discharged to be followed as an outpatient. GUS YU MD DR: SOTO/aicha JOB#: [id number] / [id number]
[2019-10-01 15:30] VITALS: BP 160/45
[2019-10-01] MEDS: LIDOCAINE (700MG/PATCH) PATCH. TD SCH (17:22)
[2019-10-01 19:10] VITALS: BP 135/63
[2019-10-01] MEDS: PATCH REMOVAL. MC SCH (21:00)
[2019-10-01] MEDS: ATORVASTATIN CALCIUM 20 MG TABLET PO SCH (21:09)
[2019-10-01 23:10] VITALS: BP 139/42
[2019-10-02] MEDS: fentaNYL PF VIAL 100 MCG/2 ML VIAL IVP PRN ×5 (01:36→20:25)
[2019-10-02 03:05] VITALS: BP 131/83
[2019-10-02 03:43] LABS: HEMATOCRIT 24.6 % (36.0-47.0); HEMOGLOBIN 8.4 g/dL (12.0-15.5); RED BLOOD COUNT 2.66 x10^6/uL (3.50-5.40); RED CELL DISTRIBUTION WIDTH 17.4 % (11.5-14.5); WHITE BLOOD COUNT 10.6 x10^3/uL (4.0-11.0)
[2019-10-02 03:54] LABS: CALCIUM 8.2 mg/dL (8.5-10.1); CREATININE 1.1 mg/dL (0.6-1.0); POTASSIUM 3.4 mmol/L (3.5-5.1)
[2019-10-02 07:15] VITALS: BP 158/59
[2019-10-02] MEDS: metFORMIN 500 MG TABLET PO SCH ×2 (08:00→17:00)
[2019-10-02] MEDS: LIDOCAINE (700MG/PATCH) PATCH. TD SCH (08:59)
[2019-10-02] MEDS: CARVEDILOL 6.25 MG TABLET. PO SCH ×2 (09:05→17:14)
--- NOTE | 2019-10-02 10:05 | PDOC ---
SUBJECTIVE Subjective S: bruises evolving, L arm/back hurting O: Gen: NAD, resting in bed Psych: pleasant mood and affect Skin: UE bruising, petechiae BLE improving MSK: dec ROM L arm Labs: plt 4,000 on admit, Hb 6.9, improved w/ plts 27 and sustained post transfusion, Hb up to 8.2 post 1 unit, by 6 Nov plt 45,000 INR 1.1, PTT nl, ferr and Fe sat adequate, B12 and LDH nl, retic nl, fibrinogen nl A/P: Ms Arvizu is an 88 yo female w/ h/o dermatitis herpetiformis, and anemia and TCP, trimethroprim and naproxen stopped on admit w/ plt of 3,000 not improved w/ prednisone 60 mg daily x 3 days, w/ good response to plt transfusion, improving w/ cessation of meds TCP: improving, BMBx pending, suspect drug induced, trimethoprim and naproxen stopped, prednisone dc'd, IVIG not needed anemia: suspect from bleeding from TCP, transfuse to keep Hb >7, good response to 1 unit blood hypoxia at home: on O2 prn 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 OBJECTIVE Vital Signs Vital Signs Date Time Temp Pulse Resp B/P (MAP) Pulse Ox O2 Delivery O2 Flow Rate FiO2 10/02/19 09:07 Nasal Cannula 3.0 10/02/19 09:05 71 158/59 10/02/19 07:15 98.7 71 16 158/59 (92) 97 Nasal Cannula 2.0 98.7 10/02/19 05:37 98 Nasal Cannula 2.0 10/02/19 05:07 98 Nasal Cannula 2.0 10/02/19 03:05 98.5 65 16 131/83 (99) 98 Nasal Cannula 2.0 98.5 10/02/19 02:06 98 Nasal Cannula 2.0 10/02/19 01:36 98 Nasal Cannula 2.0 10/01/19 23:10 98.4 69 17 139/42 (74) 98 Nasal Cannula 2.0 98.4 10/01/19 20:00 Nasal Cannula 2.5 10/01/19 19:10 98.3 72 18 135/63 (87) 97 Nasal Cannula 2.5 98.3 10/01/19 17:23 78 160/45 10/01/19 15:30 97.7 78 17 160/45 (83) 95 Nasal Cannula 2.0 97.7 10/01/19 11:30 98.1 73 17 120/55 (76) 94 Nasal Cannula 2.0 98.1 I & O Intake and Output 10/02/19 07:00 Intake Total 450 ml Output Total 0 ml Balance 450 ml Intake Oral 450 ml Output Urine Total 0 ml COMMENT Lab Laboratory Tests Test 10/01/19 11:38 10/01/19 16:50 10/01/19 21:24 10/02/19 03:10 Glucose (Fingerstick) 94 mg/dL (70-99) 83 mg/dL (70-99) 117 mg/dL (70-99) White Blood Count 10.6 x10^3/uL (4.0-11.0) Red Blood Count 2.66 x10^6/uL (3.50-5.40) Hemoglobin 8.4 g/dL (12.0-15.5) Hematocrit 24.6 % (36.0-47.0) Mean Corpuscular Volume 92 fL (79-100) Mean Corpuscular Hemoglobin 32 pg (25-35) Mean Corpuscular Hemoglobin Concent 34 g/dL (31-37) Red Cell Distribution Width 17.4 % (11.5-14.5) Platelet Count 45 x10^3/uL (140-400) Sodium Level 146 mmol/L (136-145) Potassium Level 3.4 mmol/L (3.5-5.1) Chloride Level 111 mmol/L (98-107) Carbon Dioxide Level 27 mmol/L (21-32) Anion Gap 8 (6-14) Blood Urea Nitrogen 29 mg/dL (7-20) Creatinine 1.1 mg/dL (0.6-1.0) Estimated GFR (Cockcroft-Gault) 47.0 Glucose Level 133 mg/dL (70-99) Calcium Level 8.2 mg/dL (8.5-10.1) Test 10/02/19 07:36 Glucose (Fingerstick) 107 mg/dL (70-99) WILLY AMAYA MD Oct 02, 2019 10:05
[2019-10-02 11:05] VITALS: BP 144/59
--- NOTE | 2019-10-02 13:38 | PN ---
DATE: 10/02/2019 SUBJECTIVE: The patient is resting, slightly propped up in bed, in no apparent respiratory distress. She continued to complain of severe pain in the left side of her chest; however, her lab work showed that her platelets are up to 45,000. Her bone marrow biopsy is still pending at the time of this dictation. PHYSICAL EXAMINATION: GENERAL: When I examined her, she was pale, but no jaundice, cyanosis or thyromegaly. No jugular venous distension. No limb edema. VITAL SIGNS: Her heart rate was 71, blood pressure 158/59, temperature 98.7, respiratory rate was 16, and oxygen saturation was 97% on 2 liters of oxygen. HEAD, EYES, EARS, NOSE AND THROAT: Showed normocephalic, atraumatic. NECK: Supple. HEART: Showed normal first and second heart sounds. No gallop, rub or murmur. CHEST: Clear to auscultation. No crepitation or rhonchi. There is no obvious bruise or rash suggesting the left side of her chest, tenderness mostly in the mid thoracic area. ABDOMEN: Distended, soft, nontender. NEUROLOGIC: She is awake, alert, responding appropriately. All cranial nerves intact. She moves extremities without difficulty. Her intake over the last 24 hours was 1800, no output was recorded. LABORATORY DATA: Her lab work this morning showed that her serum sodium 146, potassium 3.4, chloride 111, bicarbonate 27, anion gap of 8, BUN 29, creatinine 1.1, estimated GFR was 47 mL per minute. Her white cell count was 10,600, hemoglobin 8.4, hematocrit 24.6, MCV 92, and platelet count of 45,000. ASSESSMENT: 1. Thrombocytopenia, likely drug-induced due to trimethoprim toxicity versus idiopathic thrombocytopenic purpura. The patient has had a bone marrow biopsy done and received 1 unit of packed RBCs as well as platelet transfusion. Her platelets are up to 45,000. 2. Type 2 diabetes mellitus. 3. Hypertension. 4. Hyperlipidemia. 5. Bronchiectasis. 6. Senile macular degeneration. 7. Transient ischemic attacks x 3. 8. Generalized osteoarthritis, osteoporosis. 9. Blood loss anemia with hemoglobin that dropped down to 6.9 and 24.2, received 1 unit of packed RBCs. 10. Severe left-sided chest pain for which I will arrange for a CT scan of the thoracic spine. She is extremely osteoporotic and difficult to rule out possibility of compression fracture and we will decide on further management accordingly. GUS YU MD DR: SOTO/aicha JOB#: [id number] / [id number]
--- NOTE | 2019-10-02 14:08 | RAD ---
CT THORACIC SPINE WO CONTRAST History: Severe left-sided chest pain. Concern for compression fracture. Technique: Noncontrast CT was performed of the thoracic spine. Multiplanar reconstructions were performed. Exposure: One or more of the following individualized dose reduction techniques were utilized for this examination: 1. Automated exposure control 2. Adjustment of the mA and/or kV according to patient size 3. Use of iterative reconstruction technique. Comparison: Chest x-ray September 29, 2019 and May 18, 2019. CT chest September 09, 2016 Findings: Normal vertebral body alignment. Normal vertebral body height. No fracture. Multilevel degenerative disc changes throughout the thoracic spine. No high-grade canal narrowing. No significant neural foraminal narrowing. Mild lower thoracic facet arthropathy. Right upper lobe irregular masslike consolidation measures 1.8 x 1.8 cm. There is adjacent chronic loss opacities. Diffuse pulmonary emphysema. Diffuse interstitial thickening bilateral lower lobe fibrotic changes. Left adrenal gland thickening, unchanged. Prior granulomatous disease. Impression: 1. No acute fracture or subluxation of the thoracic spine. 2. Masslike consolidation within the right upper lobe with adjacent groundglass opacity, may represent pneumonia in the appropriate clinical setting. Recommend follow-up after treatment to ensure resolution as malignancy is not excluded. 3. Pulmonary emphysema with chronic interstitial changes. Electronically signed by: Aníbal Rivera DO (10/02/2019 2:05 PM) [id number]
[2019-10-02 15:06] VITALS: BP 143/53
[2019-10-02] MEDS: ATORVASTATIN CALCIUM 20 MG TABLET PO SCH (20:24)
[2019-10-02] MEDS: PATCH REMOVAL. MC SCH (20:25)
[2019-10-02 20:44] VITALS: BP 130/51
[2019-10-03 00:10] VITALS: BP 137/50
[2019-10-03 04:31] VITALS: BP 135/46
[2019-10-03 05:50] LABS: HEMATOCRIT 24.4 % (36.0-47.0); HEMOGLOBIN 8.3 g/dL (12.0-15.5); RED BLOOD COUNT 2.63 x10^6/uL (3.50-5.40); RED CELL DISTRIBUTION WIDTH 16.8 % (11.5-14.5); WHITE BLOOD COUNT 8.3 x10^3/uL (4.0-11.0)
[2019-10-03 05:57] LABS: CALCIUM 8.3 mg/dL (8.5-10.1); CREATININE 0.9 mg/dL (0.6-1.0); GFR 59.2; POTASSIUM 3.6 mmol/L (3.5-5.1)
[2019-10-03 07:15] VITALS: BP 137/42
[2019-10-03] MEDS: metFORMIN 500 MG TABLET PO SCH (08:00)
[2019-10-03] MEDS: CARVEDILOL 6.25 MG TABLET. PO SCH (08:28)
[2019-10-03] MEDS: LIDOCAINE (700MG/PATCH) PATCH. TD SCH (09:00)
--- NOTE | 2019-10-03 09:11 | SNU/HH DC ---
DISCHARGE WITH HOME HEALTH DISCHARGE INFORMATION: Discharge Date: Oct 03, 2019 Final Diagnosis: Problems Medical Problems: (1) Anemia Status: Acute (2) Thrombocytopenia Status: Acute Condition on Discharge: Stable CODE STATUS: Code Status: Full HOME HEALTH: Face to Face: I certify this patient is under my care and that I, or a nurse practitioner or physician's lab assistant working with me, had a face to face encounter that meets the physician face to face encounter requirements with this patient on 10/03/19 Medical Complications: Other Shelter For: Assess & Educate Safety RN For Eval/Treatment: Yes Physical Therapy For: Evalulation/Treatment Occupational Therapy For: Evaluation/Treatment Pt Meets Homebound Status: Unsteady balance w/ amb, POST DISCHARGE ORDERS: Activity Instructions for Disc: Resume previous activity DIET AFTER DISCHARGE: Regular TREATMENT/EQUIPMENT ORDERS: Adaptive Equipment Issued: Walker CERTIFICATION STATEMENT: Certification Statement: Certification Statement: Based on the above finding, I certify that this patient is confined to the home and needs intermittent fci care, physical therapy and/or speech therapy, or continues to need occupational therapy.~ This patient is under my care, and I have initiated the establishment of the plan of care.~ This patient will be followed by myself or a community physician who will periodically review the plan of care. Home Meds Reported Medications Atorvastatin Calcium (LIPITOR) 20 Mg Tablet, 1 TAB PO DAILY, #90 TAB 1 Refill 08/19/14 Meclizine Hcl (MECLIZINE HCL) 25 Mg Tablet, 1 TAB PO TID, #90 TAB 08/19/14 Metformin Hcl (GLUCOPHAGE) 500 Mg Tablet, 1 TAB PO BID, #180 TAB 1 Refill 08/19/14 Carvedilol (CARVEDILOL ) 6.25 Mg Tablet, 1 TAB PO BID, #180 TAB 1 Refill 08/19/14 Lisinopril (LISINOPRIL) 10 Mg Tablet, 1 TAB PO DAILY, #30 TAB 5 Refills 08/19/14 Discontinued Reported Medications Trimethoprim (TRIMETHOPRIM) 100 Mg Tablet, 1 TAB PO BID, #14 TAB 08/19/14 Aspirin (ASPIR 81) 81 Mg Tablet.dr, 1 TAB PO DAILY, #30 TAB 5 Refills 08/19/14 Metformin Hcl (GLUCOPHAGE) 1,000 Mg Tablet, 1 TAB PO BID, #60 TAB 5 Refills 08/19/14 Amlodipine Besylate (AMLODIPINE BESYLATE) 5 Mg Tablet, 1 TAB PO DAILY, #30 TAB 5 Refills 08/19/14 GUS YU MD Oct 03, 2019 09:11
[2019-10-03 11:03] VITALS: BP 120/38
--- NOTE | 2019-10-03 12:16 | NUR ---
SW following pt. Pt agreeable with and has met with Nurse navigator from [facility]. ANIKA phoned and faxed orders to [facility], pt will be seen tomorrow. Pt stated she has 02 [employer], ANIKA phoned and faxed orders for Walker to [employer]- will be delivered to pt's residence tomorrow. ANIKA arranged transport via central transport at 1230. Pt agreeable with dc plan and has her [place] with her. RN notified.
--- NOTE | 2019-10-03 14:37 | NUR ---
Discharge Note: LISSY SALAZAR [address] Discharge instructions and discharge home medications reviewed with patient and a copy given. All questions have been answered and understanding verbalized. The following instructions and handouts were given: Ff up with PCP in a week. Hematology work up ( ff up with Dr. Stephens) Watch out for signs of bleeding: epistaxis, melena, hematochezia. Educated about fall and bleeding precautions. Handout on thrombocytopenia, platelet transfusion. Discontinued lines and drains: peripheral IV intact, patient tolerated removal, no complications noted. Patient discharged to home with home health service and on O2 at 3LPM per nasal cannula. She left via wheelchair accompanied by transport personnel at 1245.
--- NOTE | 2019-10-03 23:06 | PATHOLOGY ---
[facility] Accession Number: [id number] . 01 Material submitted: . PART A: bone - BONE MARROW BIOPSY PART B: bone - BONE MARROW CLOT PART C: bone - BONE MARROW ASPIRATE SLIDES PART D: bone - PERIPHERAL BLOOD SMEARS PART E: bone - BONE MARROW FLOW . 01 Clinical history: . Thrombocytopenia 88-year-old woman with anemia and thrombocytopenia. . 02 Diagnosis: Bone marrow aspirate, biopsy, cell clot and peripheral blood: - Peripheral blood with severe normocytic anemia and severe thrombocytopenia. - Hypercellular bone marrow with trilineage hematopoiesis, erythroid hyperplasia, and mild trilineage dyspoiesis. 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 - See comment. (CLW:alma; 10/03/2019) [facility] [[email or web address]] 10/03/2019 [facility]8 Local . 02 Comment: Overall the bone marrow is mildly hypercellular for the patient's age with trilineage hematopoiesis, erythroid hyperplasia, mild trilineage dyspoiesis and a small monoclonal B-cell population identified by flow cytometry. The clinical significance of the B-cell population is unclear. It may represent a monoclonal B-cell lymphocytosis or if extramedullary tissue involvement is present, minimal bone marrow involvement by B-cell lymphoma. B-cells comprise less than 5% of the marrow cellularity by immunohistochemical staining. The dyspoiesis is mild and while it could possibly represent a low-grade myelodysplastic syndrome, it does not meet the morphologic criteria for myelodysplasia. Correlation with clinical history, additional laboratory data, and cytogenetics is required. (CLW:alma; 10/03/2019) . 02 Electronically signed: . Ivone Martinez MD, Pathologist NPI- [id number] . 01 Gross description: . A. The specimen is received in formalin, labeled "Ophelia Arvizu, BM BX". Received are three needle cores of light myers bone measuring 0.3, 0.5, and 0.9 cm in length by 0.3 cm in diameter. The specimen is submitted entirely in cassette A1, following light decalcification. . B. The specimen is received in formalin, labeled "Ophelia Arvizu, BM aspirate clot". Received is blood coagulum measuring 4.2 x 4.0 x 0.5 cm in aggregate dimensions. The specimen is filtered and entirely submitted in cassettes B1 and B2. ([facility]AA; 09/30/2019) QA/QA 09/30/2019 1523 Local . 02 Microscopic: . CBC Data (09/30/19): WBC 10,300 /uL, RBC 2.14, hemoglobin 6.9 g/dL, hematocrit 20.4%, MCV 95 fL, MCH 32 pg, MCHC 34 g/dL, RDW 15.1%, and platelet count 4,000 /uL. White blood cell differential: segs 69%, lymphs 23%, monos 7%. . Peripheral Blood Smear: Cytomorphological examination of the Wells's stained peripheral blood smear confirms the provided data. Red blood cells are normocytic and are without significant anisopoikilocytosis. White blood cells are predominantly segmented neutrophils and are without significant dyspoiesis or significant left shift. Lymphocytes are predominantly small, round, and mature appearing with condensed chromatin and scant cytoplasm with admixed large granular lymphocytes and reactive appearing lymphocytes. On scanning, no markedly atypical lymphoid cells are seen. Monocytes are mature. Platelets are markedly decreased in number and mainly normal in morphology with rare larger platelets noted. . Aspirate Smears: Cytomorphological examination of the Wells's stained aspirate smears show disrupted spicules present. Scattered hematopoietic progenitor cells and a rare megakaryocyte is noted; therefore, this most likely represents a mildly hemodilute sample. The myeloid to erythroid ratio is 3:1. Full myeloid maturation is identified and is mildly dyspoietic with megaloblastoid changes and rare mitotic figures. Erythroid maturation is mildly dyserythropoietic with irregular nuclear contours, basophilic stippling, megaloblastoid changes and nuclear cytoplasmic dyssynchrony. In a 500 cell differential, there are 1% blasts (no Audrey rods are seen), 57% more differentiated myeloids, 21% erythroid precursors, 20% lymphocytes and 1% plasma cells. The rare megakaryocytes are both normal and abnormal in morphology with variable sizes in nuclear abnormalities including small and/or hypolobated forms present. No lymphoid aggregates or markedly atypical lymphoid cells are seen. Plasma cells are without atypia. Iron stain of a touch imprint shows trace stainable iron with disrupted spicules present. No ringed sideroblasts are identified. . Core Biopsy and Cell Clot: The decalcified bone marrow core biopsy is adequate. The bone marrow is mildly hypercellular with an overall cellularity of approximately 50%. The myeloid to erythroid ratio is 1-2:1. Myeloid and erythroid maturation are mildly dyspoietic. Megakaryocytes are normal in number and both normal and abnormal in morphology. A rare interstitial irregular lymphoid aggregate composed of small lymphocytes is noted. No markedly atypical lymphoid cells are seen. Bony trabeculae and blood vessels are unremarkable. The cell clot has spicules present that are similar in cellularity and differential morphology as previously described. . Properly controlled special stains are performed. Block A1 Iron - 1/4+ iron positivity; Reticulin - focal mild reticulin fibrosis; . Iron (blocks B1 and B2) - 1/4+ iron positivity with spicules present. . Due to the flow cytometry findings to further quantify and characterize the small clonal B-cell population and to further identify the plasma cells, properly controlled immunohistochemical stains are performed. . Block A1 CD20 - Rare small interstitial B-cell aggregates present; PAX-5 - Rare small interstitial B-cell aggregates present; CD3 - Highlights admixed T-cells; CD31 - Stains appropriate number and location of megakaryocytes; CD138 - Approximately 5% scattered plasma cells; [place] and lambda in situ hybridization - Plasma cells are polytypic. . Block B2 CD20 - Rare scattered small B-cell; PAX-5 - Rare scattered small B-cell; CD3 - Highlights scattered T-cells; CD31 - Appropriate number and location of megakaryocytes; CD138 - Approximately 5% scattered plasma cells; [place] and lambda in situ hybridization - Plasma cells are polytypic. . Flow Cytometry: Flow cytometric immunophenotypic analysis was performed at [facility]. The diagnosis is "small lambda monoclonal B-cell population identified in bone marrow aspirate, approximately 1.7% of total cells." There are 10.6% lymphocytes. Of the lymphocytes, there are 59% T-cells with a CD4/CD8 ratio of 6.4 with no aberrant T-cell antigen expression and 31% B-cells that have a kappa lambda ratio of 0.4. B-cells comprise 3.3% of total cells. Approximately 1.7% (this population of total cells) is positive for CD19 and CD20 (dimmer) with no co-expression of CD5, CD10, CD11c, or CD23. There are 1.0% CD34 positive cells (blasts) and 0.2% precursor B-cells. Plasma cells comprise 0.2% of cells and are polyclonal by cytoplasmic light chain expression. Please see separate flow cytometry report from [facility] ([id number]). . Cytogenetics Analysis: Cytogenetic chromosomal analysis is pending at [facility] ([id number]). (CLW:alma; 10/03/2019) . 02 Pathologist provided ICD-10: D64.9, D69.6, D75.89 . 02 CPT . 222592, 572821, 067388, 225827, 876713, 154615, 259425, 557911, 245593, 243862, B36964, O63618, W45294, U00515 Specimen Comment: A courtesy copy of this report has been sent to [phone], [phone] Specimen Comment: [phone], , Specimen Comment: Report sent to ,DR YU,DR JENSEN / DR MONTGOMERY Performed at: 01 [facility] [address], [place], [place] [id number] MD Madan Cleary MD Phone: [phone] Performed at: 02 [facility] [address], [place] [id number] MD Lane Dasilva MD Phone: [phone]
== END 2019-10-03 12:45 | disposition home health service (06) | DRG 813 ==
LOC: 1 WEST ICU 19:35 → 6 SOUTH 09-28 16:19
PROVIDERS: ADMIT Internal Medicine; ATTEND Internal Medicine
PROC: 30233R1 Transfusion of Nonautologous Platelets into Peripheral Vein, Percutaneous Approach (ICD-10-PCS; principal; 2019-09-30)
PROC: 30233N1 Transfusion of Nonautologous Red Blood Cells into Peripheral Vein, Percutaneous Approach (ICD-10-PCS; 2019-09-30)
PROC: 07DR3ZX Extraction of Iliac Bone Marrow, Percutaneous Approach, Diagnostic (ICD-10-PCS; 2019-09-30)
DX: D69.59 Other secondary thrombocytopenia (principal); D69.3 Immune thrombocytopenic purpura; E11.9 Type 2 diabetes mellitus without complications; T37.8X5A Adverse effect of other specified systemic anti-infectives and antiparasitics, initial encounter; I10 Essential (primary) hypertension; E78.5 Hyperlipidemia, unspecified; M15.9 Polyosteoarthritis, unspecified; M81.0 Age-related osteoporosis without current pathological fracture; J84.10 Pulmonary fibrosis, unspecified; K21.9 Gastro-esophageal reflux disease without esophagitis; M48.00 Spinal stenosis, site unspecified; D50.0 Iron deficiency anemia secondary to blood loss (chronic); J47.9 Bronchiectasis, uncomplicated; H35.30 Unspecified macular degeneration; K06.8 Other specified disorders of gingiva and edentulous alveolar ridge; R09.02 Hypoxemia; Z86.73 Personal history of transient ischemic attack (TIA), and cerebral infarction without residual deficits; Z85.828 Personal history of other malignant neoplasm of skin; Z98.42 Cataract extraction status, left eye; Z98.41 Cataract extraction status, right eye; Z87.891 Personal history of nicotine dependence; Z87.440 Personal history of urinary (tract) infections; Z87.11 Personal history of peptic ulcer disease; Z82.49 Family history of ischemic heart disease and other diseases of the circulatory system; Z88.1 Allergy status to other antibiotic agents; Z88.5 Allergy status to narcotic agent; Z88.0 Allergy status to penicillin; Y92.89 Other specified places as the place of occurrence of the external cause
CPT/HCPCS: 36415; 38222; 71046; 72128; 77012; 80048; 80053; 82607; 82728; 82962; 83540; 83550; 83615; 85025; 85027; 85045; 85049; 85379; 85384; 85610; 85730; 86850; 86900; 86901; 86920; 88184; 88185; 88237; 88305; 88311; 88313; 88341; 88342; 88364; 88365; 99152; J2250; J3010; J7030; J7512; P9016; P9035; 97110; 97116; 97530; 97535; G0378